=== PATIENT | male | born 1960 | race Caucasian/White ===

== ENCOUNTER → 2018-08-04 | Outpatient (CLI) | payer OTHER | LOC: NUC 07:52 | DX: K42.9 Umbilical hernia without obstruction or gangrene (principal); K44.9 Diaphragmatic hernia without obstruction or gangrene; N28.1 Cyst of kidney, acquired; K76.89 Other specified diseases of liver; J98.4 Other disorders of lung; R16.0 Hepatomegaly, not elsewhere classified; M47.812 Spondylosis without myelopathy or radiculopathy, cervical region; N28.89 Other specified disorders of kidney and ureter; C43.9 Malignant melanoma of skin, unspecified; C61 Malignant neoplasm of prostate ==